=== PATIENT | female | born 1965 | race Caucasian/White ===

== ENCOUNTER 2019-03-28 16:43 | Emergency (ER) | payer BC ==
[~2019-03-28] VITALS: Ht 162.6 cm; Wt 69.0 kg
[2019-03-28 17:05] VITALS: BP 138/89
== END 2019-03-28 18:15 | disposition home or self-care (01) ==
LOC: ED 18:03
DX: S29.011A Strain of muscle and tendon of front wall of thorax, initial encounter (principal); X58.XXXA Exposure to other specified factors, initial encounter; Y93.89 Activity, other specified; Y92.69 Other specified industrial and construction area as the place of occurrence of the external cause; Y99.8 Other external cause status
CPT/HCPCS: 99283